=== PATIENT | female | born 1960 | race Caucasian/White ===

== ENCOUNTER → 2019-11-04 09:22 | Outpatient (BNVA) | payer OTHER, SELFPAY | PROVIDERS: Family Provider Internal Medicine; PCP Urology; Visit Provider Urology | DX: N30.20 Other chronic cystitis without hematuria (principal); N99.89 Other postprocedural complications and disorders of genitourinary system | CPT/HCPCS: 81001; 87077; 87086; 87186 ==

== ENCOUNTER → 2019-12-20 07:39 | Outpatient (BNVA) | payer OTHER, SELFPAY | PROVIDERS: Family Provider Internal Medicine; PCP Internal Medicine; Visit Provider Urology | DX: N30.20 Other chronic cystitis without hematuria (principal); N99.89 Other postprocedural complications and disorders of genitourinary system | CPT/HCPCS: 81001 ==

== ENCOUNTER → 2020-05-08 10:27 | Outpatient (BNVA) | payer OTHER, SELFPAY | PROVIDERS: Family Provider Internal Medicine; PCP Internal Medicine; Visit Provider Urology | DX: N30.20 Other chronic cystitis without hematuria (principal) | CPT/HCPCS: 81001 ==

== ENCOUNTER 2020-08-08 13:58 | Outpatient (CLI) | payer OTHER, SELFPAY ==
--- NOTE | 2020-08-08 14:12 | XR_ITS ---
WS: [id number] DEXA (DUAL ENERGY X-RAY ABSORPTIOMETRY) Bone mineral density was performed using a OLSET machine. HISTORY: OSTEOPOROSIS COMPARISON: 07/28/2018 Lumbar spine BMD (L1-L4): 0.978 g/cm2 T score: -1.7 Z score: -0.5 Total hip BMD: Left: 0.809g/cm2. T score: -1.6 Z score: -0.7 RIGHT forearm BMD: 0.750. T score: -1.4 Z score: -0.4 10 year probability of a major osteoporotic fracture is 16%. Compared to the prior study from 07/28/2018. Lumbar spine bone mineral density has increased by 1.1%. LEFT hip bone mineral density has decrease by 2.5%. RIGHT forearm bone mineral density has increased by 0.8%. XR/XR DEXA axial skeleton* [id number] IMPRESSION: OSTEOPENIA based upon the WHO classification for females. Mild decrease in bone mineral density in the LEFT hip since the prior study. Ot herwise no change.
--- NOTE | 2020-08-08 14:40 | MM_ITS ---
WS: [id number] BILATERAL DIGITAL SCREENING MAMMOGRAPHY WITH CAD CLINICAL INFORMATION: SCREENING HISTORY: Screening mammogram. No current complaints. COMPARISON: [id number] TECHNIQUE: Bilateral CC and MLO views. FINDINGS: Scattered fibroglandular densities bilaterally. No suspicious focal mass, asymmetry, calcifications, or architectural distortion. No evidence of malignancy. MM/[place] [id number] IMPRESSION: BI-RADS: 1-Negative FOLLOW UP: 1 Year Follow-up Recommend return to annual screening mammography.
== END 2020-08-08 13:59 | disposition home or self-care (01) ==
LOC: RADWPI 14:02
PROVIDERS: Family Provider Internal Medicine; PCP Internal Medicine; Visit Provider Internal Medicine
DX: Z12.31 Encounter for screening mammogram for malignant neoplasm of breast (principal); M81.0 Age-related osteoporosis without current pathological fracture
CPT/HCPCS: 77067; 77080

== ENCOUNTER → 2020-09-11 09:39 | Outpatient (BNVA) | payer OTHER, SELFPAY | PROVIDERS: PCP Internal Medicine; Visit Provider Urology | DX: N30.20 Other chronic cystitis without hematuria (principal) | CPT/HCPCS: 81003; 87077; 87086; 87184 ==

== ENCOUNTER 2020-09-12 16:00 | Outpatient (CLI) | payer OTHER, SELFPAY ==
[2020-09-12 16:00] VITALS: BP 143/98; PULSE 95; RESP 16; TEMP 36.3; O2SAT 97
[2020-09-12] MEDS: denosumab 60 mg SDV SUBCUT (16:20)
[2020-09-12 16:45] VITALS: BP 146/96; PULSE 94; RESP 16; O2SAT 97
== END 2020-09-12 16:01 | disposition home or self-care (01) ==
LOC: RHEOACUTE 16:00
PROVIDERS: PCP Internal Medicine; Visit Provider Internal Medicine Rheumatology
DX: M81.0 Age-related osteoporosis without current pathological fracture (principal)
CPT/HCPCS: 96372; J0897

== ENCOUNTER → 2020-10-16 07:52 | Outpatient (BNVA) | payer OTHER, SELFPAY | PROVIDERS: PCP Internal Medicine; Visit Provider Urology | DX: N30.20 Other chronic cystitis without hematuria (principal) | CPT/HCPCS: 81003 ==

== ENCOUNTER → 2020-11-16 07:51 | Outpatient (BNVA) | payer OTHER, SELFPAY | PROVIDERS: PCP Internal Medicine; Visit Provider Urology | DX: N30.20 Other chronic cystitis without hematuria (principal) | CPT/HCPCS: 81003 ==

== ENCOUNTER → 2020-12-19 08:11 | Outpatient (BNVA) | payer OTHER, SELFPAY | PROVIDERS: PCP Internal Medicine; Visit Provider Urology | DX: N30.20 Other chronic cystitis without hematuria (principal) | CPT/HCPCS: 81003 ==

== ENCOUNTER → 2021-01-08 08:20 | Outpatient (BNVA) | payer OTHER, SELFPAY | PROVIDERS: PCP Internal Medicine; Referring Provider Internal Medicine; Visit Provider Specialist | DX: M16.12 Unilateral primary osteoarthritis, left hip (principal) | CPT/HCPCS: 73502 ==

== ENCOUNTER → 2021-01-18 07:49 | Outpatient (BNVA) | payer OTHER, SELFPAY | PROVIDERS: PCP Internal Medicine; Visit Provider Urology | DX: N30.20 Other chronic cystitis without hematuria (principal) | CPT/HCPCS: 81003 ==

== ENCOUNTER → 2021-04-19 07:54 | Outpatient (BNVA) | payer OTHER, SELFPAY | PROVIDERS: PCP Internal Medicine; Visit Provider Urology | DX: N30.20 Other chronic cystitis without hematuria (principal) | CPT/HCPCS: 81003 ==

== ENCOUNTER 2021-05-17 15:21 | Outpatient (CLI) | payer OTHER, SELFPAY ==
[2021-05-17 15:39] VITALS: BP 153/92; PULSE 88; RESP 18; TEMP 36.4; O2SAT 97
[2021-05-17] MEDS: denosumab 60 mg SDV SUBCUT (15:50)
== END 2021-05-17 15:22 | disposition home or self-care (01) ==
PROVIDERS: PCP Internal Medicine; Referring Provider Internal Medicine; Visit Provider Internal Medicine
DX: M81.0 Age-related osteoporosis without current pathological fracture (principal)
CPT/HCPCS: 96372; J0897

== ENCOUNTER → 2021-08-21 08:45 | Outpatient (BNVA) | payer OTHER, SELFPAY | PROVIDERS: PCP Internal Medicine; Visit Provider Urology | DX: N30.20 Other chronic cystitis without hematuria (principal) | CPT/HCPCS: 81003 ==

== ENCOUNTER 2021-09-11 10:50 | Outpatient (CLI) | payer OTHER, SELFPAY ==
--- NOTE | 2021-09-11 11:01 | MM_ITS ---
WS: [id number] BILATERAL SCREENING DIGITAL MAMMOGRAM WITH CAD HISTORY: SCREEN COMPARISON: 08/08/2020 and 07/28/2018 Bilateral CC and MLO views submitted. Computer aided detection analyzed. Breast composition: There are scattered areas of fibroglandular density. No suspicious masses, microc alcifications or architectural distortion. Benign calcifications in each breast. MM/[place] [id number] IMPRESSION: BI-RADS: 2-Benign FOLLOW UP: 1 Year Follow-up
== END 2021-09-11 10:51 | disposition home or self-care (01) ==
LOC: RADSHAW 10:53
PROVIDERS: PCP Internal Medicine; Visit Provider Internal Medicine
DX: Z12.31 Encounter for screening mammogram for malignant neoplasm of breast (principal)
CPT/HCPCS: 77067

== ENCOUNTER 2021-11-20 07:55 | Outpatient (CLI) | payer OTHER, SELFPAY ==
[2021-11-20 08:07] VITALS: BP 160/98; PULSE 98; RESP 18; TEMP 37; O2SAT 98
[2021-11-20] MEDS: denosumab 60 mg SDV SUBCUT (08:12)
[2021-11-20 08:18] VITALS: BP 146/89; PULSE 91; RESP 18; TEMP 37.2; O2SAT 99
== END 2021-11-20 07:56 | disposition home or self-care (01) ==
LOC: ONCMED 07:57
PROVIDERS: PCP Internal Medicine; Referring Provider Internal Medicine; Visit Provider Internal Medicine
DX: M81.0 Age-related osteoporosis without current pathological fracture (principal)
CPT/HCPCS: 96372; J0897

== ENCOUNTER → 2022-02-20 15:30 | Outpatient (BNVA) | payer OTHER, SELFPAY | PROVIDERS: PCP Internal Medicine; Visit Provider Nurse Practitioner Family | DX: N30.20 Other chronic cystitis without hematuria (principal) | CPT/HCPCS: 81003 ==

== ENCOUNTER 2022-05-29 08:03 | Outpatient (CLI) | payer OTHER, SELFPAY ==
[2022-05-29 08:26] VITALS: BP 158/93; PULSE 91; RESP 18; TEMP 36.4; O2SAT 97
[2022-05-29] MEDS: denosumab 60 mg SDV SUBCUT (08:35)
[2022-05-29 08:41] VITALS: BP 138/90; PULSE 81; RESP 18; TEMP 36.4; O2SAT 97
== END 2022-05-29 08:04 | disposition home or self-care (01) ==
PROVIDERS: PCP Internal Medicine; Visit Provider Internal Medicine
DX: M81.0 Age-related osteoporosis without current pathological fracture (principal)
CPT/HCPCS: 96372; J0897

== ENCOUNTER 2022-06-28 08:17 | Outpatient (CLI) | payer OTHER, SELFPAY ==
--- NOTE | 2022-06-28 | ECG_ITS ---
[facility] Test Date: 2022-06-28 Pat Name: Kirsten Santos Department: Room: Gender: Female System Development Manager: : 1960 Requested By: Frederick Morley Order Number: [id number] Loza MD: Edvin Chou M.D. Interpretive Statements NAME OF STUDY: EXERCISE SESTAMIBI STRESS TEST INDICATION: [Chest Pain, ] EXERCISE DATA: The patient was exercised by Derick protocol. Baseline heart rate was 94 beats per minute. Baseline blood pressure was 168/98 millimeters of mercury. Target heart rate was 133 beats per minute. Maximum heart rate achieved was 162, which was 121% of the target heart rate. Maximum blood pressure was 200/119 millimeters of mercury. Total exercise time was 8 minutes. Maximum METs achieved was 10.2. The reason for ending the test was completion of protocol. The patient complained of shortness of breath during the stress test, which then resolved at the end of the test. ELECTROCARDIOGRAM: BASELINE: Showed sinus rhythm, normal axis, no significant ST-T changes at the baseline noted. [] EXERCISE: At the peak exercise level, [] No significant ST-T changes suggestive of ischemia noted. [] RECOVERY: During the recovery period, heart rate dropped appropriately. No significant ST-T changes in the recovery suggestive of ischemia noted. [] CONCLUSION: 1. Exercise capacity was good 2. Heart rate response was appropriate 3. Blood pressure response was appropriate 4. Symptoms not suggestive of ischemia. 5. Electrocardiogram portion of the stress test was not suggestive of ischemia. 6. Nuclear scan will be documented separately. Electronically Signed On 07-14-2022 21:43:58 CDT by Edvin Chou M.D. [id number]
[2022-06-28 08:43] VITALS: BMI 27.6
--- NOTE | 2022-06-28 08:45 | NMCV_ITS ---
NM jay perf SPECT r/s* [id number] Kirsten Santos Age: 62 Gender: F : 1960 Exam Date: 06/28/2022 09:31 Ordering Phys: Frederick Hilario DO Technologist: JUNIOR Mayen Exam Location: [facility] Indications: CHEST PAIN STRESS TEST Please see separate stress test report in [facility] for full findings IMAGE PROTOCOL Rest/Stress 1 Exercise Day Radiopharmaceutical Dose (mCi) Administration Site Administered by Rest: Tc-99m 10.8 IV JUNIOR Lombardo Sestamibi Stress:Tc-99m 32.8 IV JUNIOR Lombardo Sestamiannie Rest: 28-Jun-2022 60 Discovery 630 Stress: 28-Jun-2022 15 Discovery 630 Radiopharmaceutical was injected at 100% maximum heart rate. Images obtained in supine and prone position. SPECT RESULTS Technical Quality: Excellent Raw Data Analysis: Normal Image Corrections: No attenuation or motion correction applied Summed Stress Score: 0 Summed Rest Score: 3 Summed Difference Score: 0 PERFUSION FINDINGS SPECT images demonstrate homogeneous tracer distribution throughout the myocardium. FUNCTIONAL RESULTS (calculated via Gated SPECT) Stress Image LV EF (%): 80 Stress EDV (mL):54 TID: 0.77 Stress ESV (mL):11 FUNCTIONAL FINDINGS: There is normal left ventricular systolic function. IMPRESSIONS 1. Normal myocardial perfusion imaging with no evidence of ischemia. 2. LV systolic function is normal. Edvin Chou MD (Electronically Signed) Final Date: 28 June 2022 16:27 S
[2022-06-28 10:52] VITALS: BP 161/108; PULSE 110
== END 2022-06-28 08:18 | disposition home or self-care (01) ==
PROVIDERS: PCP Internal Medicine; Visit Provider Internal Medicine
DX: R07.89 Other chest pain (principal); R06.02 Shortness of breath
CPT/HCPCS: 78452; 93017; A9500

== ENCOUNTER → 2022-08-27 07:34 | Outpatient (BNVA) | payer OTHER, SELFPAY | PROVIDERS: PCP Internal Medicine; Visit Provider Urology | DX: N30.20 Other chronic cystitis without hematuria (principal) | CPT/HCPCS: 81003 ==

== ENCOUNTER 2022-09-03 13:17 | Outpatient (CLI) | payer OTHER, SELFPAY ==
--- NOTE | 2022-09-03 13:39 | XR_ITS ---
WS: [id number] SCREENING DEXA SCAN [place] CLINICAL INFORMATION: OSTEOPOROSIS COMPARISON: 2019 FINDINGS: The L1-L4 bone mineral density measures 1.069 g/cm2. This corresponds to a T score score of -0.9 and Z score of 0.3. Left femoral neck bone mineral density measures 0.866 (g/cm2). This corresponds to a T score of -1.1 (no units) and Z score of -0.2 (no units). Right forearm bone mineral density measures 0.700. This corresponds to a T score -2.0 and Z score of -0.8. XR/XR DEXA axial skeleton* [id number] IMPRESSION: Normal bone mineralization lumbar spine the upper end of the range. Osteopenia LEFT femoral neck. Osteopenia RIGHT forearm. Patient's FRAX calculated 10 year probability for major osteoporotic fracture i s 15.7 % and osteoporotic hip fracture is 1.9%. Bone mineralization lumbar spine increased 9.3% since 2019 Bone mineralization LEFT femur increased 7.0% since 2019 Bone mineralization RIGHT forearm decreased -6.7% since 2019
== END 2022-09-03 13:18 | disposition home or self-care (01) ==
PROVIDERS: PCP Internal Medicine; Visit Provider Internal Medicine
DX: M81.0 Age-related osteoporosis without current pathological fracture (principal)
CPT/HCPCS: 77080

== ENCOUNTER → 2022-10-09 08:25 | Outpatient (BNVA) | payer OTHER, SELFPAY | PROVIDERS: PCP Internal Medicine; Visit Provider Podiatrist Foot & Ankle Surgery | DX: M72.2 Plantar fascial fibromatosis (principal); S92.351A Displaced fracture of fifth metatarsal bone, right foot, initial encounter for closed fracture; X58.XXXA Exposure to other specified factors, initial encounter | CPT/HCPCS: 73630 ==

== ENCOUNTER → 2022-10-28 08:51 | Outpatient (BNVA) | payer OTHER, MEDICAID, SELFPAY | PROVIDERS: PCP Internal Medicine; Referring Provider Internal Medicine; Visit Provider Internal Medicine | DX: M81.0 Age-related osteoporosis without current pathological fracture (principal) | CPT/HCPCS: 36415; 80053; 82306; 82310; 83970; 84439; 84443 ==

== ENCOUNTER 2022-12-10 09:31 | Outpatient (CLI) | payer MEDICAID, SELFPAY ==
--- NOTE | 2022-12-10 09:30 | MR_ITS ---
WS: [id number] MRI RIGHT FOOT with and without CONTRAST. COMPARISON: Radiographs 10/09/2022 Multiplanar, multisequence imaging is performed with and without contrast. MultiHance 15 mL IV. Small avulsion fracture measuring 3 mm from the base of the fifth metatarsal is identified. There is a moderate amount of surrounding soft tissue edema. This fracture is from the bone by 2 to 3 mm. The very distal peroneus brevis tendon attachment is poorly visualized. In part this is due to the edema. Peroneus brevis may be attached to the avulsion fracture and displaced. The distal extent of the peroneus brevis is not identified with certainty. May be retracted and avulsed along with a fr acture fragment. No tenosynovitis. The peroneus longus tendon appears normal. No additional bone abnormality is identified. The Achilles tendon is normal. No enhancing masses. MR/MR foot RT wo/w con [id number] IMPRESSION: 1. 3 mm avulsion fracture from the base of the fifth metatarsal is mildly disp laced from the parent bone. There is persistent soft tissue edema at the fractu re site. No callus formation. 2. The very distal presence brevis tendon is not identified. Very small calibe r distal tendon becomes indistinct near the fifth metatarsal base. May be retra cted along with the avulsion fracture.
[2022-12-10] MEDS: gadobenate dimeglumine 20 mL vial IV (10:40)
== END 2022-12-10 09:32 | disposition home or self-care (01) ==
LOC: RAD 09:34
PROVIDERS: PCP Internal Medicine; Visit Provider Podiatrist Foot & Ankle Surgery
DX: M79.671 Pain in right foot (principal); S99.921A Unspecified injury of right foot, initial encounter; Z87.81 Personal history of (healed) traumatic fracture; X58.XXXA Exposure to other specified factors, initial encounter
CPT/HCPCS: 73720; A9577

== ENCOUNTER 2023-01-09 05:50 | Day surgery (SDC) | payer MEDICAID, SELFPAY ==
[2023-01-08 13:44] VITALS: BMI 28.0
[2023-01-09 06:10] VITALS: BP 150/97; PULSE 90; RESP 18; TEMP 36.9; O2SAT 96
[2023-01-09] MEDS: gabapentin 300 mg Capsule PO (06:21)
[2023-01-09] MEDS: sodium chloride 0.9% 1,000 ML 30 ML IV (06:24)
[2023-01-09] MEDS: acetaminophen 1,000 MG/100 ML PIGGYBACK 400 MG IV (06:28)
--- NOTE | 2023-01-09 06:36 | W.PM.OPSUD ---
Surgery/Procedure H&P Update DATE OF PROCEDURE: January 09, 2023 DATE H&P PERFORMED: 12/25/22 CHANGES TO PREVIOUS DOCUMENTATION: No changes PREOP DIAGNOSIS: Right 5th metatarsal avulsion fracture PLANNED PROCEDURE: Operation Date: 01/09/23 07:00 Proposed Procedures p Excision of fracture fragment right 5th metatarsal 87521,S92.351A(Right) - Tano Hassan DPM
--- NOTE | 2023-01-09 06:41 | ANES.PREANE2 ---
Pre-Anesthetic Assessment Height/Weight: Height 1.6 m Weight 71.668 kg Temp Pulse Resp BP Pulse Ox O2 Del Method 98.5 F 90 18 150/97 96 01/09/23 06:10 01/09/23 06:10 01/09/23 06:10 01/09/23 06:10 01/09/23 06:10 01/09/23 06:14 Preop Diagnosis: Right 5th metatarsal avulsion fracture Operation Date: 01/09/23 07:00 Proposed Procedures p Excision of fracture fragment right 5th metatarsal 83482,S92.351A(Right) - Tano Hassan DPM Familial anesthetic complications: None Was Beta Angelica taken within 24 hours: N/A Was Clonidine taken within 24 hours: N/A Last intake: Intake Last Liquid Date 01/09/23 Last Liquid Time 18:00 Last Solid Date 01/08/23 Last Solid Time 17:30 Social No alcohol and No tobacco Exam alert, oriented x 3, clear to auscultation bilaterally and regular rate & rhythm Airway Mallampati: Class II Dentition: full CV/HEM Hypertension Anesthetic Plan ASA status: 2 Anesthesia: MAC Risk of > 500 ml blood loss (7ml/kg in children): No Medications/Allergies Home Medications Medication Instructions Recorded Confirmed Last Taken Type loratadine 10 mg tablet (Claritin) 10 mg PO .prn 11/04/19 01/08/23 01/08/23 History cholecalciferol (vitamin D3) 25 25 mcg PO DAILY 11/16/20 01/08/23 01/08/23 History mcg (1,000 unit) capsule montelukast 10 mg tablet 10 mg PO .prn 12/19/20 01/08/23 01/08/23 History (Singulair) calcium carbonate 390 mg calcium 600 mg PO BID 04/19/21 01/08/23 01/08/23 History (1,000 mg) tablet denosumab 60 mg/mL subcutaneous 60 mg SUBCUT .Q6MO 04/26/21 01/08/23 Unknown History syringe (Prolia) ascorbic acid (vitamin C) 1,000 mg 1 g PO BID 08/21/21 01/08/23 01/08/23 History tablet amlodipine 5 mg tablet 5 mg PO DAILY 02/20/22 01/08/23 01/09/23 05:15 History methenamine hippurate 1 gram tablet 1 g PO BID Recurrent UTI #60 tabs 05/09/22 01/08/23 01/08/23 Rx hydrocodone 5 mg-acetaminophen 325 1 tab PO Q6H PRN pain #20 tabs 01/09/23 Unknown Rx mg tablet Allergies Allergy/AdvReac Type Severity Reaction Status Date / Time Penicillins Allergy UNKNOWN Verified 12/25/22 11:21 Current Medications Generic Name Dose Route Start Last Admin Trade Name Freq PRN Reason Stop Dose Admin Sodium Chloride 1,000 mls @ 30 mls/hr 01/09/23 06:15 01/09/23 06:24 Sodium Chloride 0.9% IV 01/10/23 06:14 30 mls/hr .Q24H WALESKA Administration PFSH Anesthesia Medical History Chronic cystitis Family history of melanoma Hypercholesteremia Hypertension Osteoporosis Positive ROSA (antinuclear antibody) Subjective muscle weakness Surgical History H/O carpal tunnel repair bilateral History of Status post creation of urethral sling by suprapubic approach Status post tonsillectomy Status post total hip replacement, right Family History Father , at age 81 Hyperlipidemia Bladder cancer Mother , AT AGE 73-BRAIN CANCER No problems noted. Social History Smoking and tobacco status: never smoked Alcohol intake: current Alcohol intake frequency: holidays/special occasions only Adopted: No Caregiver/support person: No Lives independently: No Household members: spouse Marital status: Current occupational status: retired Current gender identity: Female Data Anesthesia Cardiac Studies: Sestamibi Stress Test (Cardiology) 06/28/22
[2023-01-09] MEDS: clindamycin 600 MG/50 ML PREMIX 100 MG IV (06:58)
--- NOTE | 2023-01-09 07:00 | XR_ITS ---
WS: [id number] EXAMINATION: XR foot RT 2V [id number] REASON FOR EXAM: Excision of fracture fragment right 5th metatarsal COMPARISON: None available. ORDER DATE: 01/09/2023 7:00 AM TECHNIQUE: 1 views of the right foot were obtained. X-RAY FINDINGS: The exam is underpenetrated with the partial visualization of the lateral aspect of right foot IMPRES DORCAS: Very limited study. No signs of opaque foreign body in a small area of the lateral included on the st udy..
[2023-01-09 07:57] VITALS: BP 111/82; PULSE 99; RESP 14; TEMP 36.1; O2SAT 94
[2023-01-09 08:00] VITALS: BP 93/68; PULSE 95; RESP 14; O2SAT 93
[2023-01-09 08:07] VITALS: BP 106/71; PULSE 94; RESP 14; TEMP 36.1; O2SAT 95
[2023-01-09 08:15] VITALS: BP 123/87; PULSE 83; RESP 18; TEMP 36.2; O2SAT 97
[2023-01-09] MEDS: HYDROcodone-acetaminophen 5-325 mg Tablet 1 TAB PO (08:24)
[2023-01-09 08:29] VITALS: BP 107/72; PULSE 83; RESP 18; O2SAT 100
--- NOTE | 2023-01-09 14:44 | ANE.PACU2 ---
Inpatient post-anesthesia follow up: Airway intact: Yes Vital signs: Temperature 97.2 F Pulse Rate 83 Respiratory Rate 18 Blood Pressure 107/72 Pulse Oximetry 100 Oxygen Delivery Me thod Room Air Oxygen Flow Rate Fraction of Inspir ed Oxygen Hydration adequate: Yes Nausea and vomiting: No Pain level: 1 Mental status: Baseline
--- NOTE | 2023-01-09 19:00 | P.OP_ITS ---
Operative Report Date of procedure: December Pre-op diagnosis: Preop Diagnosis Right 5th metatarsal avulsion fracture Post-op diagnosis: Same Post-op findings: Healthy peroneus brevis tendon at insertion of base of fifth metatarsal. Tenosynovitis at insertion of tendon Procedure done: Excision of fracture fragment right fifth metatarsal base CPT 33232 Pathology: None Surgeon: Cruz HopperPGillian Estimated blood loss: Less than 10cc Complications: None Findings: See above Brief History: Patient is a 62-year-old female that has a history of right foot fifth metatarsal avulsion fracture. The patient has had the aforementioned chief complaint for some time. Conservative treatment measures have been attempted and the patient has opted for surgical intervention at this time. A lengthy discussion regarding the procedure, including risks and complications has been had with the patient and is noted in the recent clinic note. Written and verbal consent have been obtained. All patient questions have been answered to the patient?s satisfaction. No written or verbal guarantees have been given or implied. The patient has been NPO since midnight. The history has been reviewed and the history and physical is current. The signed consent was confirmed and placed in the patient chart. Patient imaging has been reviewed and is consistent with the diagnosis. Under mild sedation, the patient was brought into the operating room and placed on the table in the supine position. IV antibiotics were given by the anesthesia team as preoperative surgical prophylaxis. IV sedation was then performed by the anesthesiateam. A pneumatic tourniquet was then placed about the right ankle. The operative extremity was then prepped and draped in the usual fashion. The extremity was then elevated and exsanguinated before the tourniquet was inflated to 250 mmHg. After inflation, the following procedure was then performed. Procedure: Attention was directed to the lateral aspect of the right foot where a 4.5 cm incision was made over the fifth metatarsal base. Dissection was carried out through subcutaneous superficial fascia to the level of the peroneus brevis tendon sheath which was incised. The peroneus brevis tendon was identified and retracted inferiorly. Under C-arm fluoroscopy the fracture fragment at the base of the fifth metatarsal was visualized. Using pickups and a 15 blade this was excised and passed from the operative field. C-arm fluoroscopy was then used to confirm the removal of the fragment. No remaining fragment was visualized clinically or under fluoroscopy. The peroneus brevis tendon was noted to be healthy and viable. The incision was irrigated with copious amounts of sterile saline before attention was directed to closure. Deep tissue was closed with 3- 0 Vicryl followed by subcuticular closure with 4-0 Vicryl and skin closure with 4-0 nylon in horizontal mattress fashion. The tourniquet was let down and good hyperemic response was noted to all digits of the right foot. The incision site was dressed with Xeroform, 4 x 4 gauze, Kerlix and Ck The patient tolerated the procedure and anesthesia well and without complication. The patient was transported from the operating room to the recovery room with vital signs stable and vascular status intact to all digits of the right foot. The patient was given both written and verbal instructions to remain nonweightbearing to the operative extremity, to keep dressings/splint clean, dry and intact and to take pain medication as directed. The patient will follow-up in the outpatient setting at their scheduled appointment. The patient was discharged with my personal number and was instructed to call if any questions or issues should arise. They were discharged home once anesthesia criteria was met.
== END 2023-01-09 08:44 | disposition home or self-care (01) ==
PROVIDERS: PCP Internal Medicine; Visit Provider Podiatrist Foot & Ankle Surgery
PROC: (CPT 28140; principal; 2023-01-09 07:00)
DX: S92.351A Displaced fracture of fifth metatarsal bone, right foot, initial encounter for closed fracture (principal); X58.XXXA Exposure to other specified factors, initial encounter; I10 Essential (primary) hypertension; M81.0 Age-related osteoporosis without current pathological fracture
CPT/HCPCS: 28122; 73620; 76000; C9290; J0131; J2704; J3010; J3490; J7030

== ENCOUNTER → 2023-02-06 15:35 | Outpatient (BNVA) | payer MEDICAID, SELFPAY | PROVIDERS: PCP Internal Medicine; Visit Provider Podiatrist Foot & Ankle Surgery | DX: L02.611 Cutaneous abscess of right foot (principal) | CPT/HCPCS: 87070; 87075; 87077; 87186; 87205 ==

== ENCOUNTER → 2023-03-31 12:23 | Outpatient (BNVA) | payer MEDICAID, SELFPAY | PROVIDERS: PCP Internal Medicine; Visit Provider Internal Medicine Rheumatology | DX: M81.0 Age-related osteoporosis without current pathological fracture (principal); Z79.899 Other long term (current) drug therapy | CPT/HCPCS: 80076; 82306; 82310; 82565; 85025; 85651; 86140 ==

== ENCOUNTER 2023-04-11 08:54 | Oncology outpatient (recurring) (ONCR) | payer MEDICAID, SELFPAY ==
[2023-04-11 09:15] VITALS: BP 132/86; PULSE 82; RESP 16; TEMP 36.3; O2SAT 97
[2023-04-11] MEDS: denosumab 60 mg SDV SUBCUT (09:15)
== END 2023-04-18 23:59 | disposition home or self-care (01) ==
LOC: ONCMED 08:55
PROVIDERS: PCP Internal Medicine; Visit Provider Internal Medicine Rheumatology
DX: M81.0 Age-related osteoporosis without current pathological fracture (principal); Z79.899 Other long term (current) drug therapy
CPT/HCPCS: 96372; J0897

== ENCOUNTER 2023-05-19 13:27 | Outpatient (CLI) | payer MEDICAID, SELFPAY ==
[2023-05-19 14:15] LABS: Alanine Aminotransferase 32 U/L (0-33); Albumin Level 4.3 g/dL (3.5-5.2); Alkaline Phosphatase 72 U/L (35-105); Aspartate Amino Transferase 33 U/L (0-32); Globulin 2.7 g/dL (1.3-4.6); Total Bilirubin 0.4 mg/dL (0.15-1.2)
== END 2023-05-19 13:28 | disposition home or self-care (01) ==
PROVIDERS: PCP Internal Medicine; Visit Provider Internal Medicine Rheumatology
DX: R79.89 Other specified abnormal findings of blood chemistry (principal); Z79.899 Other long term (current) drug therapy
CPT/HCPCS: 36415; 80076

== ENCOUNTER → 2023-07-14 11:39 | Outpatient (BNVA) | payer MEDICAID, SELFPAY | PROVIDERS: PCP Internal Medicine; Visit Provider Internal Medicine Rheumatology | DX: M19.90 Unspecified osteoarthritis, unspecified site (principal); Z79.899 Other long term (current) drug therapy; R76.8 Other specified abnormal immunological findings in serum; M81.0 Age-related osteoporosis without current pathological fracture | CPT/HCPCS: 36415; 80076; 82565; 85025; 86140 ==

== ENCOUNTER → 2023-11-03 11:44 | Outpatient (BNVA) | payer MEDICAID, SELFPAY | PROVIDERS: PCP Internal Medicine; Visit Provider Internal Medicine Rheumatology | DX: M19.90 Unspecified osteoarthritis, unspecified site (principal); R76.8 Other specified abnormal immunological findings in serum; Z79.899 Other long term (current) drug therapy; M81.0 Age-related osteoporosis without current pathological fracture | CPT/HCPCS: 36415; 80076; 82306; 82565; 85025; 86140 ==

== ENCOUNTER 2023-11-14 08:26 | Oncology outpatient (recurring) (ONCR) | payer MEDICAID, SELFPAY ==
[2023-11-14 08:27] VITALS: BP 116/81; PULSE 87; RESP 16; TEMP 36.7; O2SAT 96
[2023-11-14] MEDS: denosumab 60 mg SDV SUBCUT (08:32)
== END 2023-11-19 23:59 | disposition home or self-care (01) ==
PROVIDERS: PCP Internal Medicine; Visit Provider Internal Medicine Rheumatology
DX: M81.0 Age-related osteoporosis without current pathological fracture (principal); Z53.9 Procedure and treatment not carried out, unspecified reason
CPT/HCPCS: 96372; J0897

== ENCOUNTER → 2024-03-01 10:17 | Outpatient (BNVA) | payer MEDICARE, OTHER, SELFPAY | PROVIDERS: PCP Internal Medicine; Visit Provider Internal Medicine Rheumatology | DX: M19.90 Unspecified osteoarthritis, unspecified site (principal); R76.8 Other specified abnormal immunological findings in serum; M81.0 Age-related osteoporosis without current pathological fracture | CPT/HCPCS: 36415; 80076; 82565; 85025; 86140; 99214 ==

== ENCOUNTER 2024-05-25 08:12 | Outpatient (CLI) | payer MEDICARE, OTHER, SELFPAY ==
--- NOTE | 2024-05-25 08:16 | MM_ITS ---
WS: [id number] BILATERAL 3D TOMOSYNTHESIS DIGITAL SCREENING MAMMOGRAPHY WITH CAD CLINICAL INFORMATION: SCREENING HISTORY: Screening mammogram. No current complaints. COMPARISON: 2020 TECHNIQUE: Bilateral CC and MLO views. FINDINGS: Scattered fibroglandular densities bilaterally. No suspicious focal mass, asymmetry, calcifications, or architectural distortion. No evidence of malignancy. Vascular calcification. Incidental punctate a nd lucent centered calcifications. MM/[place] [id number] IMPRESSION: BI-RADS: 2-Benign FOLLOW UP: 1 Year Follow-up Recommend return to annual screening mammography.
== END 2024-05-25 08:13 | disposition home or self-care (01) ==
LOC: RAD 08:12
PROVIDERS: PCP Internal Medicine; Visit Provider Internal Medicine
DX: Z12.31 Encounter for screening mammogram for malignant neoplasm of breast (principal); R92.323 Mammographic fibroglandular density, bilateral breasts
CPT/HCPCS: 77063; 77067

== ENCOUNTER → 2024-07-01 08:45 | Outpatient (BNVA) | payer MEDICARE, SELFPAY | PROVIDERS: PCP Internal Medicine; Visit Provider Nurse Practitioner Family | DX: L81.4 Other melanin hyperpigmentation (principal); I78.1 Nevus, non-neoplastic; L81.5 Leukoderma, not elsewhere classified; L82.1 Other seborrheic keratosis; D23.72 Other benign neoplasm of skin of left lower limb, including hip | CPT/HCPCS: 99213 ==

== ENCOUNTER 2024-08-26 13:20 | Oncology outpatient (recurring) (ONCR) | payer MEDICARE, OTHER, SELFPAY ==
[2024-08-26] MEDS: denosumab 60 mg SDV SUBCUT (13:43)
== END 2024-09-18 23:59 | disposition home or self-care (01) ==
PROVIDERS: PCP Internal Medicine; Visit Provider Internal Medicine
DX: Z79.899 Other long term (current) drug therapy (principal); M81.0 Age-related osteoporosis without current pathological fracture
CPT/HCPCS: 96372; J0897

== ENCOUNTER 2024-09-06 13:03 | Outpatient (CLI) | payer MEDICARE, OTHER, SELFPAY ==
--- NOTE | 2024-09-06 13:06 | XR_ITS ---
WS: [id number] SCREENING DEXA SCAN [employer] CLINICAL INFORMATION: osteoporosis COMPARISON: 2021 FINDINGS: The L1-L4 bone mineral density measures 0.981 g/cm2. This corresponds to a T score score of -1.7 and Z score of 0.2. Left femoral neck bone mineral density measures 0.806 (g/cm2). This corresponds to a T score of -1.6 (no units) and Z score of -0.2 (no units). Right femoral neck bone mineral density measures . This corresponds to a T score of and Z score of . LEFT forearm bone mineral density measures 0.615. This corresponds to a T score of -3.0 and Z score o f -1.6. XR/XR DEXA axial skeleton* [id number] IMPRESSION: Osteopenia lumbar spine. Osteopenia LEFT femoral neck. Osteoporosis LEFT forearm. Patient's FRAX calculated 10 year probability for major osteoporotic fracture i s 15.3% and osteoporotic hip fracture is 2.0%. Bone mineral density in the lumbar spine decreased -8.2% Bone mineral density in the LEFT femoral neck decreased -6.9% Bone mineral density in the LEFT forearm decreased -18.4%
== END 2024-09-06 13:04 | disposition home or self-care (01) ==
LOC: RAD 13:03
PROVIDERS: PCP Internal Medicine; Visit Provider Internal Medicine
DX: Z13.820 Encounter for screening for osteoporosis (principal); M81.0 Age-related osteoporosis without current pathological fracture; M85.80 Other specified disorders of bone density and structure, unspecified site; M06.4 Inflammatory polyarthropathy; M85.88 Other specified disorders of bone density and structure, other site; M85.832 Other specified disorders of bone density and structure, left forearm; R76.8 Other specified abnormal immunological findings in serum
CPT/HCPCS: 36415; 77080; 80076; 82565; 85025; 85651; 86140; 99214

== ENCOUNTER → 2024-09-20 11:08 | Outpatient (BNVA) | payer MEDICARE, OTHER, SELFPAY | PROVIDERS: PCP Internal Medicine; Visit Provider Internal Medicine | DX: E55.9 Vitamin D deficiency, unspecified (principal); M81.0 Age-related osteoporosis without current pathological fracture; Z87.81 Personal history of (healed) traumatic fracture | CPT/HCPCS: 99214 ==

== ENCOUNTER 2024-09-27 08:42 | Outpatient (CLI) | payer MEDICARE, OTHER, SELFPAY ==
[2024-09-27 09:22] LABS: Alanine Aminotransferase 15 U/L (0-33); Albumin Level 4.5 g/dL (3.5-5.2); Alkaline Phosphatase 59 U/L (35-105); Anion Gap 13.3 (5-19); Aspartate Amino Transferase 30 U/L (0-32); Blood Urea Nitrogen 13 mg/dL (8-23); Calcium 9.6 mg/dL (8.5-10.5); Carbon Dioxide 28 mmol/L (22-29); Chloride 103 mmol/L (98-107); Globulin 3.1 g/dL (1.3-4.6); Glucose 93 mg/dL (65-115); Osmolality Calculated 290 mOsm/kg (285-295); Potassium 4.3 mmol/L (3.5-5.1); Sodium 140 mmol/L (136-145); Total Bilirubin 0.4 mg/dL (0.15-1.2); Total Protein 7.6 g/dL (6.6-8.7)
[2024-09-27 09:39] LABS: 25 Hydroxy Vitamin D 81 ng/mL (30-100)
== END 2024-09-27 08:43 | disposition home or self-care (01) ==
LOC: LAB 08:43
PROVIDERS: PCP Family Medicine; Visit Provider Internal Medicine
DX: M81.0 Age-related osteoporosis without current pathological fracture (principal); E55.9 Vitamin D deficiency, unspecified
CPT/HCPCS: 80053; 82306

== ENCOUNTER 2024-12-16 08:59 | Outpatient (CLI) | payer MEDICARE, OTHER, SELFPAY ==
[2024-12-16 09:40] LABS: Alanine Aminotransferase 19 U/L (0-33); Albumin Level 4.8 g/dL (3.5-5.2); Alkaline Phosphatase 60 U/L (35-105); Anion Gap 17.2 (5-19); Aspartate Amino Transferase 34 U/L (0-32); Blood Urea Nitrogen 12 mg/dL (8-23); Calcium 9.2 mg/dL (8.5-10.5); Carbon Dioxide 25 mmol/L (22-29); Chloride 102 mmol/L (98-107); Glucose 75 mg/dL (65-115); Osmolality Calculated 288 mOsm/kg (285-295); Potassium 4.2 mmol/L (3.5-5.1); Sodium 140 mmol/L (136-145); Total Bilirubin 0.5 mg/dL (0.15-1.2); Total Protein 7.8 g/dL (6.6-8.7)
[2024-12-16 09:55] LABS: 25 Hydroxy Vitamin D 73 ng/mL (30-100)
== END 2024-12-16 09:00 | disposition home or self-care (01) ==
LOC: LAB 09:01
PROVIDERS: PCP Family Medicine; Visit Provider Internal Medicine
DX: M81.0 Age-related osteoporosis without current pathological fracture (principal); E55.9 Vitamin D deficiency, unspecified
CPT/HCPCS: 36415; 80053; 82306

== ENCOUNTER → 2024-12-23 08:10 | Outpatient (BNVA) | payer MEDICARE, OTHER, SELFPAY | PROVIDERS: PCP Family Medicine; Visit Provider Internal Medicine | DX: M81.0 Age-related osteoporosis without current pathological fracture (principal); E55.9 Vitamin D deficiency, unspecified; Z87.81 Personal history of (healed) traumatic fracture | CPT/HCPCS: 99214 ==

== ENCOUNTER 2025-02-15 08:30 | Outpatient (CLI) | payer MEDICARE, OTHER, MEDICAID, SELFPAY ==
[2025-02-15 09:42] LABS: Alanine Aminotransferase 18 U/L (0-33); Albumin Level 4.6 g/dL (3.5-5.2); Alkaline Phosphatase 61 U/L (35-105); Aspartate Amino Transferase 36 U/L (0-32); Blood Urea Nitrogen 11 mg/dL (8-23); Calcium 9.4 mg/dL (8.5-10.5); Carbon Dioxide 28 mmol/L (22-29); Chloride 97 mmol/L (98-107); Globulin 3.3 g/dL (1.3-4.6); Glucose 84 mg/dL (65-115); Osmolality Calculated 281 mOsm/kg (285-295); Sodium 136 mmol/L (136-145); Total Bilirubin 0.4 mg/dL (0.15-1.2); Total Protein 7.9 g/dL (6.6-8.7)
[2025-02-15 09:43] LABS: Anion Gap 15.6 (5-19); Potassium 4.6 mmol/L (3.5-5.1)
== END 2025-02-15 08:31 | disposition home or self-care (01) ==
PROVIDERS: PCP Family Medicine; Visit Provider Internal Medicine
DX: M81.0 Age-related osteoporosis without current pathological fracture (principal); Z87.81 Personal history of (healed) traumatic fracture; E55.9 Vitamin D deficiency, unspecified
CPT/HCPCS: 36415; 80053

== ENCOUNTER 2025-02-22 13:51 | Oncology outpatient (recurring) (ONCR) | payer MEDICARE, OTHER, MEDICAID, SELFPAY ==
[2025-02-22] MEDS: denosumab 60 mg SDV SUBCUT (14:27)
== END 2025-03-19 23:59 | disposition home or self-care (01) ==
PROVIDERS: PCP Family Medicine; Visit Provider Internal Medicine
DX: M81.0 Age-related osteoporosis without current pathological fracture (principal); Z79.899 Other long term (current) drug therapy
CPT/HCPCS: 96372; J0897

== ENCOUNTER → 2025-02-28 10:06 | Outpatient (BNVA) | payer MEDICARE, OTHER, SELFPAY | PROVIDERS: PCP Internal Medicine; Visit Provider Internal Medicine Rheumatology | DX: R76.8 Other specified abnormal immunological findings in serum (principal); M81.0 Age-related osteoporosis without current pathological fracture; M19.90 Unspecified osteoarthritis, unspecified site | CPT/HCPCS: 99214 ==

== ENCOUNTER → 2025-06-22 14:06 | Outpatient (BNVA) | payer MEDICARE, OTHER, SELFPAY | PROVIDERS: PCP Internal Medicine; Visit Provider Nurse Practitioner Family | DX: L81.4 Other melanin hyperpigmentation (principal); I78.1 Nevus, non-neoplastic; L81.5 Leukoderma, not elsewhere classified; L82.1 Other seborrheic keratosis; D23.72 Other benign neoplasm of skin of left lower limb, including hip; L57.0 Actinic keratosis | CPT/HCPCS: 17000; 99213 ==

== ENCOUNTER → 2025-06-23 08:25 | Outpatient (BNVA) | payer MEDICARE, OTHER, SELFPAY | PROVIDERS: PCP Internal Medicine; Visit Provider Internal Medicine | DX: M81.0 Age-related osteoporosis without current pathological fracture (principal); Z87.81 Personal history of (healed) traumatic fracture; E55.9 Vitamin D deficiency, unspecified | CPT/HCPCS: 99214 ==

== ENCOUNTER 2025-08-15 10:48 | Outpatient (CLI) | payer MEDICARE, OTHER, SELFPAY ==
[2025-08-15 11:20] LABS: Hematocrit 42.0 % (36-47); Hemoglobin 14.30 g/dL (11.27-16.99); Mean Corpuscular HGB Conc 34.0 g/dL (30-55); Mean Corpuscular Hemoglobin 33.0 pg (27-33); Mean Corpuscular Volume 97.0 fl (85-98); Nucleated Red Blood Cells % 0 %; Platelet Count 188 10^3/cmm (157-399); Red Blood Count 4.33 10^6/uL (3.85-5.65); White Blood Count 5.94 10^3/uL (3.29-11.43)
[2025-08-15 11:46] LABS: Alanine Aminotransferase 18 U/L (0-33); Albumin Level 4.7 g/dL (3.5-5.2); Alkaline Phosphatase 62 U/L (35-105); Anion Gap 16.1 (5-19); Aspartate Amino Transferase 32 U/L (0-32); Blood Urea Nitrogen 9 mg/dL (8-23); Calcium 10.1 mg/dL (8.5-10.5); Carbon Dioxide 27 mmol/L (22-29); Chloride 101 mmol/L (98-107); Globulin 3.1 g/dL (1.3-4.6); Glucose 81 mg/dL (65-115); Osmolality Calculated 288 mOsm/kg (285-295); Potassium 4.1 mmol/L (3.5-5.1); Sodium 140 mmol/L (136-145); Total Protein 7.8 g/dL (6.6-8.7)
== END 2025-08-15 10:49 | disposition home or self-care (01) ==
LOC: LAB 10:51
PROVIDERS: Internal Medicine Rheumatology; PCP Internal Medicine; Visit Provider Internal Medicine
DX: E55.9 Vitamin D deficiency, unspecified (principal); Z87.81 Personal history of (healed) traumatic fracture; M81.0 Age-related osteoporosis without current pathological fracture; Z79.899 Other long term (current) drug therapy
CPT/HCPCS: 36415; 80053; 82306; 85025; 85651; 86140

== ENCOUNTER 2025-08-22 08:05 | Oncology outpatient (recurring) (ONCR) | payer MEDICARE, OTHER, SELFPAY ==
[2025-08-22] MEDS: denosumab 60 mg SDV (Infusion Clinic Only) SUBCUT (08:21)
== END 2025-09-18 23:59 | disposition home or self-care (01) ==
LOC: ONCMED 08:05
PROVIDERS: PCP Internal Medicine; Visit Provider Internal Medicine
DX: M81.0 Age-related osteoporosis without current pathological fracture (principal); Z79.899 Other long term (current) drug therapy
CPT/HCPCS: 96372; J0897